=== PATIENT | female | born 1975 | race Caucasian/White ===

== ENCOUNTER 2018-04-10 12:05 | Emergency (ER) | payer MEDICAID ==
[~2018-04-10] VITALS: Ht 154.9 cm; Wt 52.1 kg
[2018-04-10] MEDS ORDERED: MAALOX/HYOSCYAMINE/LIDOCAINE 45 ML BTL ONE (12:55)
[2018-04-10] MEDS ORDERED: MAALOX/HYOSCYAMINE/LIDOCAINE 45 ML BTL PO ONE (13:00)
[2018-04-10] MEDS ORDERED: FAMOTIDINE 20 MG TABLET ONE (13:16)
[2018-04-10] MEDS ORDERED: FAMOTIDINE 20 MG TABLET PO ONE ×2 (13:30→14:00)
[2018-04-10 13:46] VITALS: BP 114/68
[2018-04-10] MEDS ORDERED: SUCRALFATE 1 GM/10 ML UDC PO ONE (16:00)
== END 2018-04-10 13:48 | disposition home or self-care (01) ==
LOC: ED 13:45
DX: K20.9 Esophagitis, unspecified (principal)
CPT/HCPCS: 93005; 99284

== ENCOUNTER 2018-06-30 06:32 | Emergency (ER) | payer MEDICAID ==
[~2018-06-30] VITALS: Ht 154.9 cm; Wt 53.3 kg
[2018-06-30 06:35] VITALS: BP 113/83
[2018-06-30] MEDS ORDERED: DEXAMETHASONE 4 MG/ML, 5ML ONE (06:49)
--- NOTE | 2018-06-30 06:54 | NUR ---
MED REQUEST SENT TO PHARMACY.
[2018-06-30] MEDS ORDERED: BICILLIN-LA 1,200,000 UNITS/2 ML IM ONE (07:00)
[2018-06-30] MEDS ORDERED: DEXAMETHASONE 4 MG/ML, 1ML PO ONE (07:00)
== END 2018-06-30 07:02 | disposition home or self-care (01) ==
LOC: ED 06:56
DX: J03.00 Acute streptococcal tonsillitis, unspecified (principal)
CPT/HCPCS: 96372; 99283; J0561; J1100

== ENCOUNTER 2018-12-29 09:26 | Emergency (ER) | payer MEDICAID ==
[~2018-12-29] VITALS: Ht 154.9 cm; Wt 53.1 kg
[2018-12-29 12:11] VITALS: BP 105/71
== END 2018-12-29 12:12 | disposition home or self-care (01) ==
LOC: ED 11:55
DX: A60.04 Herpesviral vulvovaginitis (principal)
CPT/HCPCS: 36415; 81001; 86694; 86695; 86696; 87210; 87255; 87491; 87591; 87808; 88161; 99283